=== PATIENT | male | born 1985 | race Caucasian/White ===

== ENCOUNTER 2021-06-17 16:47 | Inpatient (IN) ==
[2021-06-17] MEDS ORDERED: HYDROmorphone INJ 0.5 MG/0.5 ML SYR IV STA ×2 (17:26→19:16)
[2021-06-17] MEDS ORDERED: ONDANSETRON INJ 2 MG/ML 2 ML VIAL IV STA (17:26)
--- NOTE | 2021-06-17 17:27 | Emergency Department Note ---
History of Present Illness General Chief complaint: Back Injury/Pain Stated complaint: BACK PAIN Time Seen by Provider: 06/17/21 17:19 History of Present Illness Maximum Pain Intensity: 8 This is a 36-year-old male that presents to the emergency department via ambulance with complaints of low back pain". The patient states that he has been experiencing back pain over the past few months. He states that over the past few days it has significantly worsened. He presented to [facility] emergency department in [place] yesterday and notes that he was started on methylprednisolone as well as Flexeril. Pain has persisted. Today he presented to [facility] to have an L-spine MRI. He states that the pain has significantly worsened and therefore was brought here via EMS. He denies any fevers or chills. He does state that yesterday he had a sharp jolt of pain and a brief episode of urinary incontinence. No stool incontinence. Patient does note discomfort radiating down the left leg and weakness in the left leg that persists. Pain originates in the left low back region. No abdominal pain. No chest pain or shortness of breath. No fevers. Patient states that he has not had any spine surgeries previously. Patient notes a history of sarcoidosis. He also notes a history of blebectomy. No allergies. Home Medications Medication Instructions Recorded Confirmed Type buspirone 10 mg tablet 20 mg PO QAM 06/17/21 06/17/21 History citalopram 40 mg tablet 40 mg PO QAM 06/17/21 06/17/21 History cyclobenzaprine 10 mg tablet 10 mg PO BID PRN 06/17/21 06/17/21 History meloxicam 7.5 mg tablet 7.5 mg PO BID 06/17/21 06/17/21 History methylprednisolone 4 mg tablets in 4 - 24 mg PO UD 06/17/21 06/17/21 History a dose pack valacyclovir 1 gram tablet 1,000 mg PO DAILY 06/17/21 06/17/21 History Allergies Allergy/AdvReac Type Severity Reaction Status Date / Time No Known Allergies Allergy Unverified 06/17/21 19:16 Past Med/Surg History Medical History Sarcoidosis Surgical History History of lung surgery blebectomy Social History Smoking Status: Current every day smoker Cigarettes Per Day: 5; Second Hand Exposure: No; Do You Dip or Chew Tobacco: No; Tobacco Cessation Education Requested by Patient: No Hx Alcohol Use: Yes Alcohol type: beer Hx Substance Use: No Preferred Language: Romansh Communication Ability: Effective Guide Escort Required: No Beliefs That Will Affect Care: None Current Living Situation: Significant Other Other Information That Helps Us Care for You: No Feels Safe at Home: Yes Safety Concerns: Feels Safe At This Time Assistive Devices: None Review of Systems A total of 10 systems reviewed and were otherwise negative Physical Exam Vital Signs Vital Signs - 24 hr 06/17/21 16:50 06/17/21 17:26 06/17/21 18:00 Temperature 36.3 C L Temperature Source Temporal Artery Scan Pulse Rate 102 H 85 Pulse Rate [Apical] 75 Pulse Rhythm Regular Pulse Strength Normal Respiratory Rate 20 16 Respiratory Effort / Characteristics Non-Labored Spontaneous Non-Labored Spontaneous Respiratory Depth Normal Normal Respiratory Pattern Regular Blood Pressure 146/62 H Blood Pressure [Right Arm] 144/99 H Blood Pressure Mean 90 Blood Pressure Mean [Right Arm] 114 Blood Pressure Position Sitting Pulse Oximetry 97 98 99 Oxygen Delivery Method Room Air Room Air Room Air Sepsis Recent Fever Within 48 Hours No Sepsis New/Unexplained Change in Mental Status No Sepsis Action Taken by Nursing No Action Required VITAL SIGNS - Vital signs and nursing notes were reviewed. Stable and afebrile. GENERAL -36-year-old male appearing his stated age who is in no acute distress but appears to be in a lot of pain. Communicates well with provider and answers questions appropriately. SKIN - Without rashes. No meningeal or petechial rash. HEAD - NC/AT. NECK - No nuchal rigidity. LUNGS - Chest wall symmetric without accessory muscle use, intercostals retractions, or central cyanosis. Normal vesicular breath sounds CTA B/L. No wheezes, rales, or rhonchi appreciated. CARDIAC - RRR with S1/S2. No murmur, rubs, or gallops appreciated. ABDOMEN - Abdominal contour normal without pulsations or visible masses. EXTREMITIES - No clubbing or peripheral cyanosis. No pretibial edema present. Decreased strength of the left lower extremity noted compared to the right. Sensory intact to light touch throughout the bilateral lower extremities. Patient well-perfused in the lower extremities. NEUROLOGIC - Cranial nerves II through XII grossly intact. PSYCH - A&O, and cooperates fully with examiner. Pt is very pleasant and interacts well with examiner. Course Administered Medications Hydromorphone HCl (Hydromorphone Inj 1 Mg/Ml Syringe) 1 mg IV Q3H PRN PRN Reason: severe pain (scale 7-10) Stop: 07/01/21 20:17 Last Admin: 06/17/21 21:50 Dose: 1 mg Documented by: [id number] Lactated Ringer's (Lr) 1,000 mls @ 75 mls/hr IV .[id number] ON LICENSE OF [facility] Stop: 07/17/21 20:17 Last Admin: 06/17/21 20:28 Dose: 75 mls/hr Documented by: [id number] Discontinued Medications Albuterol (Albuterol Hfa 8 Gm Inhaler) 2 puffs INH QID ON LICENSE OF [facility] Stop: 07/17/21 20:59 Last Admin: 06/17/21 21:39 Dose: Not Given Documented by: [id number] Hydromorphone HCl (Hydromorphone Inj 0.5 Mg/0.5 Ml Syr) 0.5 mg IV NOW STA Stop: 06/17/21 17:27 Last Admin: 06/17/21 17:42 Dose: 0.5 mg Documented by: [id number] Hydromorphone HCl (Hydromorphone Inj 0.5 Mg/0.5 Ml Syr) 0.5 mg IV NOW STA Stop: 06/17/21 19:17 Last Admin: 06/17/21 19:23 Dose: 0.5 mg Documented by: [id number] Ondansetron HCl (Ondansetron Inj 2 Mg/Ml 2 Ml Vial) 4 mg IV NOW STA Stop: 06/17/21 17:27 Last Admin: 06/17/21 17:40 Dose: 4 mg Documented by: [id number] Medical Decision Making Laboratory Data Result diagrams: 06/17/21 17:40 06/17/21 17:40 Lab Results 06/17/21 06/17/21 06/17/21 Range/Units 17:40 17:40 17:40 WBC 12.04 H (4.8-10.8) K/uL RBC 4.47 L (4.7-6.1) M/uL Hgb 14.8 (14.0-18.0) g/dL Hct 42.5 (42-52) % MCV 95.1 (80-100) fL MCH 33.1 (25-34) pg MCHC 34.8 (32-36) g/dL RDW Std Deviation 43.6 (36.4-46.3) fL RDW Coeff of Musa 12.6 (11.5-14.5) % Plt Count 246 (130-400) K/uL MPV 9.8 (7.4-10.4) fL Immature Gran % (Auto) 0.2 % Neut % (Auto) 67.6 % Lymph % (Auto) 24.3 % [place] % (Auto) 7.5 % Eos % (Auto) 0.3 % Baso % (Auto) 0.1 % Neut # (Auto) 8.15 H (1.4-6.5) K/uL Lymph # (Auto) 2.92 (1.2-3.4) K/uL [place] # (Auto) 0.90 H (0.11-0.59) K/uL Eos # (Auto) 0.04 (0-0.5) K/uL Baso # (Auto) 0.01 (0-0.2) K/uL Immature Gran # (Auto) 0.02 (0.00-0.02) K/uL PT 11.3 (9.0-12.0) Seconds INR 1.1 (0.9-1.1) APTT 25.1 (21.0-31.0) Seconds PTT Ratio 1.0 Sodium 140 (136-145) mmol/L Potassium 3.6 (3.5-5.1) mmol/L Chloride 106 (98-107) mmol/L Carbon Dioxide 28 (21-32) mmol/L Anion Gap 6 (3-11) BUN 17 (6-23) mg/dl Creatinine 0.85 (0.6-1.4) mg/dl Est Cr Clr Drug Dosing Not Reportable Est GFR ( Amer) 130.8 ml/min Est GFR (Non-Af Amer) 112.9 ml/min BUN/Creatinine Ratio 20.0 (10-20) Glucose 90 (70-99(Fasting)) mg/dl Calcium 9.4 (8.5-10.1) mg/dl Total Bilirubin 0.5 (0.2-1.0) mg/dl AST 17 (13-39) U/L ALT 47 (7-52) U/L Alkaline Phosphatase 50 (34-104) U/L Total Protein 7.0 (6.0-8.3) gm/dl Albumin 4.4 (3.4-5.0) gm/dl Globulin 2.6 (2.5-4.0) gm/dl Albumin/Globulin Ratio 1.7 (0.9-2) SARS-CoV-2, RNA, NAAT (NEGATIVE) 06/17/21 Range/Units 17:52 WBC (4.8-10.8) K/uL RBC (4.7-6.1) M/uL Hgb (14.0-18.0) g/dL Hct (42-52) % MCV (80-100) fL MCH (25-34) pg MCHC (32-36) g/dL RDW Std Deviation (36.4-46.3) fL RDW Coeff of Mus[place] (11.5-14.5) % Plt Count (130-400) K/uL MPV (7.4-10.4) fL Immature Gran % (Auto) % Neut % (Auto) % Lymph % (Auto) % [place] % (Auto) % Eos % (Auto) % Baso % (Auto) % Neut # (Auto) (1.4-6.5) K/uL Lymph # (Auto) (1.2-3.4) K/uL [place] # (Auto) (0.11-0.59) K/uL Eos # (Auto) (0-0.5) K/uL Baso # (Auto) (0-0.2) K/uL Immature Gran # (Auto) (0.00-0.02) K/uL PT (9.0-12.0) Seconds INR (0.9-1.1) APTT (21.0-31.0) Seconds PTT Ratio Sodium (136-145) mmol/L Potassium (3.5-5.1) mmol/L Chloride (98-107) mmol/L Carbon Dioxide (21-32) mmol/L Anion Gap (3-11) BUN (6-23) mg/dl Creatinine (0.6-1.4) mg/dl Est Cr Clr Drug Dosing Est GFR ( Amer) ml/min Est GFR (Non-Af Amer) ml/min BUN/Creatinine Ratio (10-20) Glucose (70-99(Fasting)) mg/dl Calcium (8.5-10.1) mg/dl Total Bilirubin (0.2-1.0) mg/dl AST (13-39) U/L ALT (7-52) U/L Alkaline Phosphatase (34-104) U/L Total Protein (6.0-8.3) gm/dl Albumin (3.4-5.0) gm/dl Globulin (2.5-4.0) gm/dl Albumin/Globulin Ratio (0.9-2) SARS-CoV-2, RNA, NAAT NEGATIVE (NEGATIVE) MDM Narrative Patient was seen and evaluated as above in room D07. Review was performed of nursing notes and vital signs. After obtaining a thorough history and physical examination the above work up was performed. Patient presents to us today via EMS for evaluation of low back discomfort that has been worsening. He had an MRI today performed at [facility]. Patient states that ambulance was then summoned and brought him here for evaluation noting his significant discomfort. On my evaluation he appears to be in a fair amount of pain. He has low back pain that radiates down his left leg. This is consistent with lumbar radiculopathy. No fevers or chills. No abdominal pain. No findings to suggest cauda equina syndrome on my examination here at the present time. Options of care were discussed with the patient. IV access was established. Labs were drawn. I did review the MRI of the L-spine without contrast that was performed today. This reveals large left subarticular disc extrusion at L5-S1 resulting in severe left lateral recess stenosis and compression of the descending left S1 nerve root. This does fit with the patient's symptoms clinically. Patient has a follow-up scheduled for just over 10 days from now with Dr. Andersen. I did call Dr. Andersen. At this time we are in agreement that the patient would be best served by being admitted to the hospital for likely operative intervention. Patient happy with this plan of care. While here he was medicated with IV analgesics. He was also given IV Zofran. By history it appears that the patient has undergone physical therapy in the past and the pain has been ongoing now to a point where it is severe. His MRI also has significa nt findings. Please refer to further documentation regarding his stay. GCS: 15 In the evaluation and treatment of this patient the following differential diagnosis entertained: Fracture, dislocation, subluxation, cauda equina syndrome, AAA, diverticulitis, appendicitis, torsion, osteomyelitis, piriformis syndrome, strain, sprain, among others. Impression & Plan Lumbar radiculopathy, Intractable low back pain, Abnormal MRI, lumbar spine Discharge Plan Visit Data Chief Complaint: Back Injury/Pain Stated Complaint: BACK PAIN ED Midlevel Provider: Sohail Huang Discharge Problem: Lumbar radiculopathy, Intractable low back pain, Abnormal MRI, lumbar spine Patient Disposition: Admitted As Inpatient Condition: Good Discharge Instructions Interventions: ED Discharge Assessment Last Done: 06/17/21 20:04
[2021-06-17 17:52] LABS: Basophils # (auto) 0.01 K/uL (0-0.2); Basophils % (auto) 0.1 %; Eosinophils # (auto) 0.04 K/uL (0-0.5); Eosinophils % (auto) 0.3 %; Hematocrit (blood only) 42.5 % (42-52); Hemoglobin 14.8 g/dL (14.0-18.0); Immature Granulocytes # (auto) 0.02 K/uL (0.00-0.02); Immature Granulocytes % (auto) 0.2 %; Lymphocytes # (auto) 2.92 K/uL (1.2-3.4); Lymphocytes % (auto) 24.3 %; Mean Corpuscular Hemoglobin 33.1 pg (25-34); Mean Corpuscular Hgb Conc 34.8 g/dL (32-36); Mean Corpuscular Volume 95.1 fL (80-100); Mean Platelet Volume 9.8 fL (7.4-10.4); Monocytes % (auto) 7.5 %; Neutrophils # (auto) 8.15 K/uL (1.4-6.5); Neutrophils % (auto) 67.6 %; Platelet Count 246 K/uL (130-400); RDW Coefficient of Variation 12.6 % (11.5-14.5); RDW Standard Deviation 43.6 fL (36.4-46.3); Red Blood Count 4.47 M/uL (4.7-6.1); White Blood Count 12.04 K/uL (4.8-10.8)
[2021-06-17 18:02] LABS: INR 1.1 (0.9-1.1); Partial Thromboplastin Time 25.1 Seconds (21.0-31.0); Prothrombin Time 11.3 Seconds (9.0-12.0)
[2021-06-17 18:10] LABS: Alanine Aminotransferase 47 U/L (7-52); Albumin Globulin Ratio 1.7 (0.9-2); Albumin Level 4.4 gm/dl (3.4-5.0); Alkaline Phosphatase 50 U/L (34-104); Anion Gap 6 (3-11); Aspartate Aminotransferase 17 U/L (13-39); Bilirubin,Total 0.5 mg/dl (0.2-1.0); Blood Urea Nitrogen 17 mg/dl (6-23); Calcium 9.4 mg/dl (8.5-10.1); Carbon Dioxide 28 mmol/L (21-32); Chloride 106 mmol/L (98-107); Est GFR (African American) 130.8 ml/min; Est GFR (Non-African American) 112.9 ml/min; Globulin 2.6 gm/dl (2.5-4.0); Glucose 90 mg/dl (70-99(Fasting)); Potassium 3.6 mmol/L (3.5-5.1); Sodium 140 mmol/L (136-145)
[2021-06-17] MEDS ORDERED: ONDANSETRON INJ 2 MG/ML 2 ML VIAL IV PRN (20:18)
[2021-06-17] MEDS ORDERED: LORazepam 0.5 MG/1 ML VIAL IV PRN (20:18)
[2021-06-17] MEDS ORDERED: traMADol HCL 50 MG TABLET PO PRN (20:18)
[2021-06-17] MEDS ORDERED: HYDROmorphone INJ 0.5 MG/0.5 ML SYR IV PRN (20:18)
[2021-06-17] MEDS ORDERED: METOCLOPRAMIDE HCL INJ 5 MG/ML 2 ML VIAL IV PRN (20:18)
[2021-06-17] MEDS ORDERED: PROMETHAZINE HCL 12.5 MG in SODIUM CHLORIDE 0.9% 50 ML IV PRN (20:18)
[2021-06-17] MEDS ORDERED: ONDANSETRON 4 MG OD TAB PO PRN (20:18)
[2021-06-17] MEDS ORDERED: ACETAMINOPHEN 1,000 MG/100 ML VIAL IV PRN (20:18)
[2021-06-17] MEDS ORDERED: LORazepam 0.5 MG TAB PO PRN (20:18)
[2021-06-17] MEDS ORDERED: ACETAMINOPHEN 500 MG TAB PO PRN (20:18)
[2021-06-17] MEDS ORDERED: NALOXONE HCL 0.4 MG/1 ML VIAL/CARP IV PRN (20:18)
[2021-06-17] MEDS: LACTATED RINGER'S 1,000 ML IV SCH (20:28)
[2021-06-17] MEDS ORDERED: ALBUTEROL HFA 8 GM INHALER INH SCH (21:00)
[2021-06-17] MEDS: HYDROmorphone INJ 1 MG/ML SYRINGE IV PRN (21:50)
--- NOTE | 2021-06-17 22:14 | Hospitalist Consultation ---
Date of Consultation June 17, 2021 Assessment & Plan (1) Lumbar radiculopathy: Final Assessment and Recommendations as follows : Lumbar radiculopathy, worsening symptoms Failed conservative management Situational hypertension COPD, sarcoidosis, stable lung status for years now as per patient ADHD, anxiety/mood disorder, stable on home regimen ongoing tobacco abuse Management of lumbar radiculopathy as per Orthopedics. Recommend baseline CXR if surgery contemplated given history lung disease Analgesia Nicotine patch as needed DVT prophylaxis. SCDs as per admission orders Re: Possible spine surgery Thank you very much for this consultation. Dr. Hay will follow patient's progress. Will relay to AM provider. Text document was generated using [employer] voice recognition software. It may contain grammatical or spelling errors. Kindly contact undersigned for clarification of any documentation item in question. History of Present Illness Reason for Consultation: Medical management Requesting Physician: Dr. Andersen Attending Physician: Avinash Andersen DO History of Present Illness PCP : Dr. Saucedo History obtained from patient and records. Medical history significant for COPD, sarcoidosis, ADHD, anxiety/mood disorder, ongoing tobacco abuse. Last confinement 2011 for recurrent pneumothorax left status post VATS surgery. 4 months ago, patient noted low back pain more on the left with a radiation to the left lower extremity. No leg weakness, numbness or incontinence symptoms. May have been brought about by dropping a stove backwards on himself, having to carry his 90 pound dog up flights of stairs, and prolonged sitting from work. 2 months ago, patient noted worsening discomfort with leg weakness and numbness. No fever, no chills. Patient seen at PCPs office last month. Symptoms attributed to lumbar radiculopathy. Medrol Dosepak, meloxicam and outpatient physical therapy recommended. Outpatient lumbosacral spine x-ray showed L4-S1 degenerative disc changes. Patient had worsening discomfort after physical therapy about 2 days ago. Patient consulted [facility] ER and subsequently sent home. Outpatient orthopedic spine referral scheduled for end of the month. Outpatient MRI scheduled today. Possible urinary incontinence on the way to outpatient MRI facility at [facility] as per patient. There is a large left subarticular disc extrusion at L5-S1 resulting in severe left lateral recess stenosis and compression of the descending left S1 nerve root. Patient consulted ER for worsening symptoms. 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, occasional EtOH intake, RN Allergies Allergy/AdvReac Type Severity Reaction Status Date / Time No Known Allergies Allergy Unverified 06/17/21 19:16 Home Medications Medication Instructions Recorded Confirmed Type buspirone 10 mg tablet 20 mg PO QAM 06/17/21 06/17/21 History citalopram 40 mg tablet 40 mg PO QAM 06/17/21 06/17/21 History cyclobenzaprine 10 mg tablet 10 mg PO BID PRN 06/17/21 06/17/21 History meloxicam 7.5 mg tablet 7.5 mg PO BID 06/17/21 06/17/21 History methylprednisolone 4 mg tablets in 4 - 24 mg PO UD 06/17/21 06/17/21 History a dose pack valacyclovir 1 gram tablet 1,000 mg PO DAILY 06/17/21 06/17/21 History Patient History Medical History Sarcoidosis Surgical History History of lung surgery blebectomy Social History Smoking Status: Current every day smoker Cigarettes Per Day: 5; Second Hand Exposure: No; Do You Dip or Chew Tobacco: No; Tobacco Cessation Education Requested by Patient: No Hx Alcohol Use: Yes Alcohol type: beer Hx Substance Use: No Preferred Language: Palestinian Communication Ability: Effective Quality Assurance Analyst Required: No Beliefs That Will Affect Care: None Current Living Situation: Significant Other Other Information That Helps Us Care for You: No Feels Safe at Home: Yes Safety Concerns: Feels Safe At This Time Assistive Devices: None Review of Systems Review of Systems: As per HPI, all 10 systems reviewed, all other ROS negative Physical Exam Physical Exam: GENERAL: Slightly uncomfortable, no respiratory distress SKIN: Normal color, warm HEENT: [place] palpebral conjunctivae, no ptosis, moist buccal mucosa NECK : Supple, no tenderness CHEST : Decreased breath sounds, no tenderness HEART : RRR, no obvious murmurs ABDOMEN: Some distention, nontender BACK : Low back tenderness, positive SLR left EXTREMITIES : No LE swelling/tenderness, no other conspicuous deformities noted NEUROLOGIC : Coherent, no facial asymmetry, gait and stance not assessed Results & Data Results & Data ([facility]) Vital Signs (Past 12 Hours) Vital Signs Temp Pulse Pulse Pulse Resp BP BP 06/17/21 20:30 36.6 C 71 16 144/91 H 06/17/21 20:13 36.6 C 83 20 161/101 H 06/17/21 19:59 36.6 C 75 16 140/93 06/17/21 19:24 88 16 139/95 06/17/21 18:00 75 16 144/99 H 06/17/21 17:26 85 06/17/21 16:50 36.3 C L 102 H 20 146/62 H Pulse Ox 06/17/21 20:30 98 06/17/21 20:13 98 06/17/21 19:59 99 06/17/21 19:24 99 06/17/21 18:00 99 06/17/21 17:26 98 06/17/21 16:50 97 Laboratory Results Laboratory Results WBC 12.04 K/uL (4.8-10.8) H 06/17/21 17:40 RBC 4.47 M/uL (4.7-6.1) L 06/17/21 17:40 Hgb 14.8 g/dL (14.0-18.0) 06/17/21 17:40 Hct 42.5 % (42-52) 06/17/21 17:40 MCV 95.1 fL (80-100) 06/17/21 17:40 MCH 33.1 pg (25-34) 06/17/21 17:40 MCHC 34.8 g/dL (32-36) 06/17/21 17:40 RDW Std Deviation 43.6 fL (36.4-46.3) 06/17/21 17:40 RDW Coeff of Musa 12.6 % (11.5-14.5) 06/17/21 17:40 Plt Count 246 K/uL (130-400) 06/17/21 17:40 MPV 9.8 fL (7.4-10.4) 06/17/21 17:40 Immature Gran % (Auto) 0.2 % 06/17/21 17:40 Neut % (Auto) 67.6 % 06/17/21 17:40 Lymph % (Auto) 24.3 % 06/17/21 17:40 [place] % (Auto) 7.5 % 06/17/21 17:40 Eos % (Auto) 0.3 % 06/17/21 17:40 Baso % (Auto) 0.1 % 06/17/21 17:40 Neut # (Auto) 8.15 K/uL (1.4-6.5) H 06/17/21 17:40 Lymph # (Auto) 2.92 K/uL (1.2-3.4) 06/17/21 17:40 [place] # (Auto) 0.90 K/uL (0.11-0.59) H 06/17/21 17:40 Eos # (Auto) 0.04 K/uL (0-0.5) 06/17/21 17:40 Baso # (Auto) 0.01 K/uL (0-0.2) 06/17/21 17:40 Immature Gran # (Auto) 0.02 K/uL (0.00-0.02) 06/17/21 17:40 PT 11.3 Seconds (9.0-12.0) 06/17/21 17:40 INR 1.1 (0.9-1.1) 06/17/21 17:40 APTT 25.1 Seconds (21.0-31.0) 06/17/21 17:40 PTT Ratio 1.0 06/17/21 17:40 Sodium 140 mmol/L (136-145) 06/17/21 17:40 Potassium 3.6 mmol/L (3.5-5.1) 06/17/21 17:40 Chloride 106 mmol/L (98-107) 06/17/21 17:40 Carbon Dioxide 28 mmol/L (21-32) 06/17/21 17:40 Anion Gap 6 (3-11) 06/17/21 17:40 BUN 17 mg/dl (6-23) 06/17/21 17:40 Creatinine 0.85 mg/dl (0.6-1.4) 06/17/21 17:40 Est Cr Clr Drug Dosing Not Reportable 06/17/21 17:40 Est GFR ( Amer) 130.8 ml/min 06/17/21 17:40 Est GFR (Non-Af Amer) 112.9 ml/min 06/17/21 17:40 BUN/Creatinine Ratio 20.0 (10-20) 06/17/21 17:40 Glucose 90 mg/dl (70-99(Fasting)) 06/17/21 17:40 Calcium 9.4 mg/dl (8.5-10.1) 06/17/21 17:40 Total Bilirubin 0.5 mg/dl (0.2-1.0) 06/17/21 17:40 AST 17 U/L (13-39) 06/17/21 17:40 ALT 47 U/L (7-52) 06/17/21 17:40 Alkaline Phosphatase 50 U/L (34-104) 06/17/21 17:40 Total Protein 7.0 gm/dl (6.0-8.3) 06/17/21 17:40 Albumin 4.4 gm/dl (3.4-5.0) 06/17/21 17:40 Globulin 2.6 gm/dl (2.5-4.0) 06/17/21 17:40 Albumin/Globulin Ratio 1.7 (0.9-2) 06/17/21 17:40 SARS-CoV-2, RNA, NAAT NEGATIVE (NEGATIVE) 06/17/21 17:52
[2021-06-17] MEDS ORDERED: CYCLOBENZAPRINE HCL 10 MG TAB PO PRN (23:36)
[2021-06-17] MEDS ORDERED: ALBUTEROL HFA 8 GM INHALER INH PRN (23:39)
[2021-06-18] MEDS: HYDROmorphone INJ 1 MG/ML SYRINGE IV PRN ×5 (01:32→16:06)
[2021-06-18] MEDS: oxyCODONE HCL IR 5 MG TAB (IMMEDIATE RELEASE) PO PRN ×3 (02:38→17:21)
[2021-06-18] MEDS ORDERED: ceFAZolin 2000MG 2,000 MG/15 ML SYR IV SCH (06:00)
[2021-06-18 06:27] LABS: Appearance Urine Clear (Clear); Bilirubin Urine Negative (Negative); Blood Urine Negative (Negative); Color Urine Dark Yellow; Glucose Urine UA Negative (Negative); Ketones Urine Trace (Negative); Leukocyte Esterase Urine Negative (Negative); Nitrite Urine Negative (Negative); Protein Urine Negative (Negative); Specific Gravity Urine 1.032 (1.000-1.030); Urobilinogen Urine Negative (Negative); pH Urine 5.5 (4.5-7.5)
--- NOTE | 2021-06-18 07:14 | Anesthesiology Consultation ---
Date of Service June 18, 2021 Assessment & Plan (1) Encounter for pre-operative examination: covid neg 06/17/21 Chart Review Chart Review: Acceptable Risk for Surgery and Patient NOT seen in Pre Admission Testing Consults Requested none History Surgery Operation Date: 06/18/21 10:30 Proposed Procedures p Lumbar Decompression Possible Fusion L4-5 - Avinash Andersen DO Height/Weight Height: 6 ft 4 in Weight: 104.9 kg Allergies Allergy/AdvReac Type Severity Reaction Status Date / Time No Known Allergies Allergy Unverified 06/17/21 19:16 Medications Home Medications Medication Instructions Recorded Confirmed Last Taken buspirone 10 mg tablet 20 mg PO QAM 06/17/21 06/17/21 06/17/21 citalopram 40 mg tablet 40 mg PO QAM 06/17/21 06/17/21 06/17/21 cyclobenzaprine 10 mg tablet 10 mg PO BID PRN 06/17/21 06/17/21 06/17/21 07:00 meloxicam 7.5 mg tablet 7.5 mg PO BID 06/17/21 06/17/21 06/17/21 07:00 15 mg methylprednisolone 4 mg tablets in 4 - 24 mg PO UD 06/17/21 06/17/21 06/16/21 a dose pack 24mg - 6 pills valacyclovir 1 gram tablet 1,000 mg PO DAILY 06/17/21 06/17/21 06/17/21 Active Medications Generic Name Dose Route Start Last Admin Trade Name Freq PRN Reason Stop Dose Admin Hydromorphone HCl 1 mg 06/17/21 20:18 06/18/21 04:46 Hydromorphone Inj 1 Mg/Ml Syringe IV 07/01/21 20:17 1 mg Q3H PRN Administration severe pain (scale 7-10) Lactated Ringer's 1,000 mls @ 75 mls/hr 06/17/21 20:18 06/17/21 20:28 Lr IV 07/17/21 20:17 75 mls/hr .[id number] Administration Oxycodone HCl 5 - 10 mg 06/17/21 20:18 06/18/21 02:38 Oxycodone Hcl Ir 5 Mg Tab (Immediate Release) PO 07/01/21 20:17 10 mg Q4H PRN Administration mod to severe pain Past Medical History Medical History Sarcoidosis Past Surgical History Surgical History History of lung surgery blebectomy Social History Smoking Status: Current every day smoker tobacco type: cigarettes Smoking cigarettes per day: 5 Do You Dip or Chew Tobacco: No Hx Alcohol Use: Yes Alcohol type: beer alcohol intake frequency: a few times a week Hx Substance Use: No substance use type: does not use Physical Exam Vital Signs Last Vital Signs Temp 36.6 C 06/17/21 20:30 Pulse 71 06/17/21 20:30 Resp 16 06/17/21 20:30 BP 144/91 H 06/17/21 20:30 Pulse Ox 98 06/17/21 20:30 Testing Laboratory Results 06/17/21 17:40 06/17/21 17:40 PT 11.3 Seconds (9.0-12.0) 06/17/21 17:40 INR 1.1 (0.9-1.1) 06/17/21 17:40 APTT 25.1 Seconds (21.0-31.0) 06/17/21 17:40 Urine Color Dark Yellow 06/18/21 05:56 Urine Appearance Clear (Clear) 06/18/21 05:56 Urine pH 5.5 (4.5-7.5) 06/18/21 05:56 Ur Specific [place] 1.032 (1.000-1.030) H 06/18/21 05:56 Urine Protein Negative (Negative) 06/18/21 05:56 Urine Glucose (UA) Negative (Negative) 06/18/21 05:56 Urine Ketones Trace (Negative) H 06/18/21 05:56 Urine Nitrite Negative (Negative) 06/18/21 05:56 Ur Leukocyte Esterase Negative (Negative) 06/18/21 05:56
[2021-06-18] MEDS: busPIRone 5 MG TAB PO SCH (07:49)
[2021-06-18] MEDS: FLUTICASONE PROPIONATE NA SPR 16 GM BTL NAE SCH (07:49)
[2021-06-18] MEDS: FLUTICASONE FUROATE 200MCG 14 PUFFS/INHALER INH SCH (07:49)
[2021-06-18] MEDS: CITALOPRAM 40 MG TAB PO SCH (07:49)
[2021-06-18] MEDS: valACYclovir HCL 500 MG TABLET PO SCH (07:49)
[2021-06-18] MEDS ORDERED: HYDROmorphone INJ 1 MG/ML SYRINGE IV STA (08:55)
[2021-06-18] MEDS: LACTATED RINGER'S 1,000 ML IV SCH ×2 (09:08→22:08)
--- NOTE | 2021-06-18 09:21 | History & Physical Report ---
Date of Service June 18, 2021 Assessment & Plan (1) Lumbar disc herniation with radiculopathy: Plan: MRI of the lumbar spine performed 06/17/2021 at [facility] demonstrates evidence of a massive disc herniation L5-S1 on the left with evidence of a free fragment caudal migration. There is severe displacement the traversing S1 nerve root. Plan at this time patient is in severe distress with progressive motor deficit and recommending emergent lumbar laminectomy L5-S1 with excision of herniated fragment. Risk benefits pros cons alternatives were outlined in detail. Patient is n.p.o. and plan for surgery later today. Admission and Anticipated Discharge Date Admission Date: June 17, 2021 History of Present Illness Chief Complaint: Severe left leg pain with weakness Primary Care Provider: Petey Saucedo MD This is a 36-year-old male that has history of left sciatica for several weeks with a marked decline in status over the past few days. He presents emergency room with severe pain and inability to ambulate. He denies any loss of bowel bladder control. Denies any perineal numbness. Does have numbness and tingling extending down the entire left lower extremity to the lesser toes. The right lower extremities asymptomatic. Allergies Allergy/AdvReac Type Severity Reaction Status Date / Time No Known Allergies Allergy Unverified 06/17/21 19:16 Home Medications Medication Instructions Recorded Confirmed Type buspirone 10 mg tablet 20 mg PO QAM 06/17/21 06/17/21 History citalopram 40 mg tablet 40 mg PO QAM 06/17/21 06/17/21 History cyclobenzaprine 10 mg tablet 10 mg PO BID PRN 06/17/21 06/17/21 History meloxicam 7.5 mg tablet 7.5 mg PO BID 06/17/21 06/17/21 History methylprednisolone 4 mg tablets in 4 - 24 mg PO UD 06/17/21 06/17/21 History a dose pack valacyclovir 1 gram tablet 1,000 mg PO DAILY 06/17/21 06/17/21 History Past Med/Surg History Medical History Sarcoidosis Surgical History History of lung surgery blebectomy Social History Smoking Status: Current every day smoker Cigarettes Per Day: 5; Second Hand Exposure: No; Do You Dip or Chew Tobacco: No; Tobacco Cessation Education Requested by Patient: No Hx Alcohol Use: Yes Alcohol type: beer Hx Substance Use: No Preferred Language: [place] Communication Ability: Effective 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 He is in severe discomfort when transitioning to a supine position. It causes severe pain left buttock posterior thigh and to the left foot. He has marked tension signs with straight leg raising on the left as well as contralateral signs on the right. He has deficits with plantar flexion on the left compared to the r ight at 4-/5. There is clear changes in sensory with cold and light touch to the left. Degenerative flexes absent. Results & Data ([facility]) Vital Signs (Past 12 Hours) Vital Signs Temp Pulse Resp BP Pulse Ox 06/18/21 08:14 36.4 C L 65 16 130/88 98 Code Status & VTE Plan VTE Prophylaxis Plan VTE Prophylaxis will be ordered: Yes
--- NOTE | 2021-06-18 11:49 | Hospitalist Progress Note ---
Date of Service June 18, 2021 Assessment & Plan (1) Lumbar disc herniation with radiculopathy: (2) Intractable low back pain: Plan: Scheduled for lumbar decompression and fusion L5-S1 today with Dr. Andersen Per ortho for pain control, wound care, anticoagulation and activities Monitor H&H (pre-op hgb 14.8), continue incentive spirometry, PT/OT when appropriate (3) COPD (chronic obstructive pulmonary disease): Plan: Stable. Not using home inhalers (4) Anxiety: Plan: Continue buspirone, citalopram (5) Tobacco use disorder: Plan: Smoking cessation recommended DVT ppx: per primary service Code status: FULL PCP: Sheryl Dispo: Admitted to med/surg Patient seen in collaboration with Dr. Hay. Please see addendum. Admission and Anticipated Discharge Date Admission Date: June 17, 2021 Supervising Physician Co-Signing Physician Notes Patient is seen and examined at bedside. States having significant back pain radiating to the left lower extremity associated with numbness and tingling sensation of the left lower extremity. Denies any chest pain, shortness of breath, dizziness, nausea, abdominal pain. Patient is planned for back surgery today by Dr. Andersen. On exam patient is well-built and nourished, no apparent distress, normocephalic atraumatic, EOMI, normal breath sounds, clear to auscultation, S1-S2, no murmur, no pedal edema, abdomen soft, nontender, normal bowel sounds, alert, awake, oriented, grossly no focal deficits. Pain control, activity as per primary team. Consider PT OT when appropriate. Monitor for postop anemia. Bowel regimen to prevent constipation. No signs of COPD exacerbation. Blood pressure elevated likely situational secondary to pain. Monitor blood pressure closely. I personally reviewed the record. Patient is interviewed and examined at bedside. Patient's care is coordinated with Jazmyne Clark PA-C. Please refer to the documentation above for details of patient's presentation and for discussion of other issues. Subjective Seen and examined in 357-1. Due for OR later this morning for spinal surgery with Dr. Andersen. Lower back pain minimally improved with Dilaudid this AM. Also experiencing burning pain in BLE. Discussed other med options of tylenol, oxycodone, flexeril and ice to try pre-operatively. No F/C, CP, SOB, N/V/D, urinating without issue. Review of Systems Review of Systems: At least ten systems reviewed and negative except as noted in the HPI. Physical Exam Physical Exam: Gen: WD/WN, NAD, sitting on side of bed, A&Ox3 HEENT: Normocephalic, atraumatic, conjunctivae moist, sclerae anicteric, mucous membranes moist Lung: Clear to Auscultation bilaterally, no wheezes/rales/rhonchi Heart: Regular rate, regular rhythm, no murmurs, rubs, or gallops Abdomen: Soft, NT, ND +BS x 4 Extremities: no edema Skin: Warm, no rash Results & Data Results & Data ([facility]) Vital Signs (Past 12 Hours) Vital Signs Temp Pulse Resp BP Pulse Ox 06/18/21 08:14 36.4 C L 65 16 130/88 98 Laboratory Results Short CBC 06/17/21 Range/Units 17:40 WBC 12.04 H (4.8-10.8) K/uL Hgb 14.8 (14.0-18.0) g/dL Hct 42.5 (42-52) % Plt Count 246 (130-400) K/uL BMP 06/17/21 17:40 Sodium 140 Potassium 3.6 Chloride 106 Carbon Dioxide 28 BUN 17 Creatinine 0.85 Glucose 90 Calcium 9.4 Liver Function 06/17/21 Range/Units 17:40 Total Bilirubin 0.5 (0.2-1.0) mg/dl AST 17 (13-39) U/L ALT 47 (7-52) U/L Alkaline Phosphatase 50 (34-104) U/L Albumin 4.4 (3.4-5.0) gm/dl Urine 06/18/21 Range/Units 05:56 Urine Color Dark Yellow Urine Appearance Clear (Clear) Urine pH 5.5 (4.5-7.5) Ur Specific [place] 1.032 H (1.000-1.030) Urine Protein Negative (Negative) Urine Glucose (UA) Negative (Negative)
[2021-06-18] MEDS ORDERED: DEXAMETHASONE SOD INJ 4 MG/ML VIAL ONE (17:14)
[2021-06-18] MEDS ORDERED: LIDOCAINE 2% 2 ML VIAL/AMP(20MG/ML) INFIL ONE (17:14)
[2021-06-18] MEDS ORDERED: ROCURONIUM BROMIDE 10 MG/ML 5 ML VIAL IV ONE (17:14)
[2021-06-18] MEDS ORDERED: ONDANSETRON INJ 2 MG/ML 2 ML VIAL ONE ×2 (17:14→19:41)
[2021-06-18] MEDS ORDERED: fentaNYL citrate 100 MCG/2 ML VIAL ONE ×2 (17:14)
[2021-06-18] MEDS ORDERED: PROPOFOL IV EMULSION 10 MG/ML 20 ML VIAL IV ONE (17:14)
[2021-06-18] MEDS ORDERED: MIDAZOLAM HCL 1 MG/ML 2ML VIAL ONE (17:14)
[2021-06-18] MEDS ORDERED: EPINEPHrine INJ 1 MG/ML AMP ONE (18:11)
[2021-06-18] MEDS ORDERED: BUPIVACAINE 0.5 % 5 MG/1 ML MPF 30ML VIAL ONE (18:12)
[2021-06-18] MEDS ORDERED: ceFAZolin 330 MG/ML 1 GM VIAL ONE (18:12)
[2021-06-18] MEDS ORDERED: fentaNYL citrate 100 MCG/2 ML VIAL IV PRN (18:31)
[2021-06-18] MEDS ORDERED: ATROPINE SULFATE 0.1 MG/ML 10ML SYR IV PRN (18:31)
[2021-06-18] MEDS ORDERED: PROMETHAZINE HCL 12.5 MG in SODIUM CHLORIDE 0.9% 50 ML IV PRN ×2 (18:31→21:29)
[2021-06-18] MEDS ORDERED: ePHEDrine sulfate 50 MG/ML AMP IV PRN (18:31)
[2021-06-18] MEDS ORDERED: ONDANSETRON INJ 2 MG/ML 2 ML VIAL IV PRN ×2 (18:31→21:29)
[2021-06-18] MEDS ORDERED: HYDROmorphone INJ 2 MG/ML SYR/VIAL IV PRN (18:31)
[2021-06-18] MEDS ORDERED: ePHEDrine sulfate 50 MG/ML AMP ONE (19:16)
[2021-06-18] MEDS ORDERED: SODIUM CHLORIDE 0.9% INJ 10 ML VIAL ONE (19:16)
[2021-06-18] MEDS ORDERED: GLYCOPYRROLATE 0.2 MG/ML VIAL ONE (19:47)
[2021-06-18] MEDS ORDERED: NEOSTIGMINE METHYLSULFATE 1 MG/ML 10ML VIAL ONE (19:47)
--- NOTE | 2021-06-18 19:51 | Operative Report ---
Post Operative Report Pre & Post Diagnosis Operation Date: 06/18/21 10:30 Pre-Op Diagnosis: L5-S1 Lumbar disc herniation with radiculopathy Post-Op Diagnosis: L5-S1 Lumbar disc herniation with radiculopathy I identified the patient and participated in the time-out.: Yes Procedure Operation Date: 06/18/21 10:30 Actual Procedures Lumbar laminotomy L5-S1 the left with excision of herniated free fragment Surgeon Avinash Andersen, DO Tour Coordinator None Estimated Blood Loss 10 Findings Consistent with Post-Op Diagnosis Specimens None Indications This is a 36-year-old male presents with severe left leg radiculopathy and deficit with plantarflexion and inability ambulate. MRI demonstrates massive herniated free fragment at L5-S1 with component of caudal migration and severe compression of the traversing S1 nerve root and is here for emergent laminotomy discectomy. Description of Procedure Patient was met with identified informed consent obtained. Patient was then taken to the operative suite underwent ablation placed in a prone position adjustable totals frame. All when he prominences well-padded eyes inspected to ensure no external pressure placed upon the. This point lumbar spine was prepped and draped in a sterile fashion. The assistance of fluoroscopy defy the L5-S1 disc space and a small midline incision was created overlying this region. Sharp dissection with assistance of Bovie electrocautery was performed down to expose the interlaminar space at L5-S1 left. Several 10 retractors placed. I then performed a small laminotomy excising the lateral portion of ligamentum flavum to expose a severely compressed traversing S1 nerve root. I was able to mobilize the nerve root medially and several massive fragments of free disc material identified and removed. The area was explored several times to ensure all fragments addressed then copiously irrigated and closed with subcutaneous Vicryl 4 Monocryl for final skin closure. Steri-Strip sterile dressings placed. Patient will continue PACU stable condition. I attest to the content of the Intraoperative Record and any orders documented therein. Any exceptions are noted below.
--- NOTE | 2021-06-18 21:00 | Anesthesiology Progress Note ---
Date of Service June 18, 2021 Anesthesia Post Procedure Vital Signs Vital Signs: Temp Pulse Pulse Resp BP Pulse Ox 06/18/21 20:48 80 14 129/91 96 06/18/21 20:35 65 14 129/71 100 06/18/21 20:25 77 14 139/80 100 06/18/21 20:20 36.3 C L 79 12 149/114 H 100 06/18/21 17:59 36.5 C 72 18 151/107 H 96 06/18/21 16:49 73 146/92 H 06/18/21 15:43 36.5 C 83 16 149/103 H 98 06/18/21 08:14 36.4 C L 65 16 130/88 98 Pain Intensity Back: Pain Intensity: 3 Left Leg: Pain Intensity: 0 Transfer of Care Handoff Completed per policy Notes Mental Status: alert / awake / arousable and participated in evaluation Patient Amnestic to Procedure: Yes Nausea / Vomiting: adequately controlled Pain: adequately controlled Airway Patency, RR, SpO2: stable & adequate BP & HR: stable & adequate Hydration State: stable & adequate Anesthetic Complications: no major complications apparent and Pt Satisfied with anesthetic care
[2021-06-18] MEDS ORDERED: ALUMINUM/MAGNESIUM SUSP 30 ML UDC PO PRN (21:29)
[2021-06-18] MEDS ORDERED: SOD PHOSPHATE/SOD BIPHOSPHATE ENEMA 132 ML BTL PR PRN (21:29)
[2021-06-18] MEDS ORDERED: NALOXONE HCL 0.4 MG/1 ML VIAL/CARP IV PRN (21:29)
[2021-06-18] MEDS ORDERED: DO NOT ADMINISTER FLU VACCINE PRN (21:29)
[2021-06-18] MEDS ORDERED: diphenhydrAMINE Capsule 25 MG CAP PO PRN (21:29)
[2021-06-18] MEDS ORDERED: traMADol HCL 50 MG TABLET PO PRN (21:29)
[2021-06-18] MEDS ORDERED: LORazepam 0.5 MG/1 ML VIAL IV PRN (21:29)
[2021-06-18] MEDS ORDERED: DOCUSATE SODIUM/SENNA 50/8.6MG TAB PO SCH (21:29)
[2021-06-18] MEDS ORDERED: FAMOTIDINE 20 MG TAB PO PRN (21:29)
[2021-06-18] MEDS ORDERED: hydrOXYzine HCl 25 MG TAB PO PRN (21:29)
[2021-06-18] MEDS ORDERED: ACETAMINOPHEN 500 MG TAB PO PRN (21:29)
[2021-06-18] MEDS ORDERED: ONDANSETRON 4 MG OD TAB PO PRN (21:29)
[2021-06-18] MEDS ORDERED: METOCLOPRAMIDE HCL INJ 5 MG/ML 2 ML VIAL IV PRN (21:29)
[2021-06-18] MEDS ORDERED: HYDROmorphone INJ 0.5 MG/0.5 ML SYR IV PRN (21:29)
[2021-06-18] MEDS ORDERED: ACETAMINOPHEN 1,000 MG/100 ML VIAL IV PRN (21:29)
[2021-06-18] MEDS ORDERED: DO NOT ADMINISTER PNEUMOCOCCAL VACCINE PRN (21:29)
[2021-06-18] MEDS ORDERED: LORazepam 0.5 MG TAB PO PRN (21:29)
[2021-06-18] MEDS ORDERED: MAGNESIUM HYDROXIDE SUSP 30 ML UDC PO PRN (21:29)
[2021-06-18] MEDS ORDERED: HYDROmorphone INJ 1 MG/ML SYRINGE IV PRN (21:29)
[2021-06-18] MEDS ORDERED: bisacodyL 10 MG SUPP PR PRN (21:29)
--- NOTE | 2021-06-18 22:14 | Fluoroscopy Report ---
FL spine 1V any level CLINICAL HISTORY: Laminectomy COMPARISON STUDY: None FLUOROSCOPY TIME: 4 seconds. FLUOROSCOPIC IMAGES: 1 FINDINGS: Lateral fluoroscopic image was obtained with the probe present at the L5-S1 level. IMPRESSION: Localization of the L5-S1 level. ACT 112: Negative or not required by law. Electronically signed by: Marcellus Cruz M.D. 06/18/2021 10:13 PM
[2021-06-18] MEDS: KETOROLAC 30 MG/ML VIAL IV SCH (22:25)
[2021-06-19] MEDS: ceFAZolin 2000MG 2,000 MG/15 ML SYR IV SCH ×2 (01:55→10:43)
[2021-06-19] MEDS: KETOROLAC 30 MG/ML VIAL IV SCH ×2 (03:56→10:43)
[2021-06-19] MEDS: LACTATED RINGER'S 1,000 ML IV SCH (05:00)
[2021-06-19 06:11] LABS: Hematocrit (blood only) 39.3 % (42-52); Hemoglobin 14.2 g/dL (14.0-18.0); Mean Corpuscular Hemoglobin 33.9 pg (25-34); Mean Corpuscular Hgb Conc 36.1 g/dL (32-36); Mean Corpuscular Volume 93.8 fL (80-100); Mean Platelet Volume 9.7 fL (7.4-10.4); Platelet Count 237 K/uL (130-400); RDW Coefficient of Variation 12.3 % (11.5-14.5); RDW Standard Deviation 41.4 fL (36.4-46.3); Red Blood Count 4.19 M/uL (4.7-6.1); White Blood Count 9.49 K/uL (4.8-10.8)
[2021-06-19] MEDS: POLYETHYLENE (MIRALAX) 17 GM PACK PO SCH ×2 (06:18→11:20)
[2021-06-19 06:19] LABS: BUN Creatinine Ratio 15.7 (10-20); Calcium 9.2 mg/dl (8.5-10.1); Creatinine Clr Calc Pharmacy 154.1 ml/min; Est GFR (African American) 128.4 ml/min; Est GFR (Non-African American) 110.8 ml/min; Potassium 3.9 mmol/L (3.5-5.1)
[2021-06-19] MEDS: oxyCODONE HCL IR 5 MG TAB (IMMEDIATE RELEASE) PO PRN ×2 (08:01→12:51)
[2021-06-19] MEDS: valACYclovir HCL 500 MG TABLET PO SCH (08:01)
[2021-06-19] MEDS: CITALOPRAM 40 MG TAB PO SCH (08:01)
[2021-06-19] MEDS: busPIRone 5 MG TAB PO SCH (08:01)
[2021-06-19] MEDS: FLUTICASONE PROPIONATE NA SPR 16 GM BTL NAE SCH (08:02)
[2021-06-19] MEDS: FLUTICASONE FUROATE 200MCG 14 PUFFS/INHALER INH SCH (08:02)
[2021-06-19] MEDS ORDERED: dexAMETHasone 6 MG in SYRINGE 0 ML IV SCH (09:00)
--- NOTE | 2021-06-19 09:15 | Hospitalist Progress Note ---
Date of Service June 19, 2021 Assessment & Plan (1) Lumbar disc herniation with radiculopathy: (2) Intractable low back pain: Plan: POD#1 s/p Lumbar laminotomy L5-S1 the left with excision of herniated free fragment by Dr. Andersen Per ortho for pain control, wound care, anticoagulation and activities Monitor H&H (pre-op hgb 14.8), continue incentive spirometry, PT/OT when appropriate (3) COPD (chronic obstructive pulmonary disease): Plan: Stable. Not using home inhalers (4) Anxiety: Plan: Continue buspirone, citalopram (5) Tobacco use disorder: Plan: Smoking cessation recommended DVT ppx: per primary service Code status: FULL PCP: Sheryl Dispo: Admitted to med/surg Patient seen in collaboration with Dr. Hay. Please see addendum. Admission and Anticipated Discharge Date Admission Date: June 17, 2021 Supervising Physician Co-Signing Physician Notes Patient is seen and examined at bedside. States feeling well today. Back pain is much improved denies any leg numbness, tingling today. Eager to get discharged. On exam patient is well-built and nourished, no apparent distress, normocephalic atraumatic, EOMI, normal breath sounds, clear to auscultation, S1- S2, no murmur, no pedal edema, abdomen soft, nontender, normal bowel sounds, alert, awake, oriented, grossly no focal deficits. Lumbar disc herniation with radiculopathy S/P surgery. Pain control, activity as per primary team. Consider PT OT. Bowel regimen to prevent constipation. No signs of COPD exacerbation. Blood pressure better today. I personally reviewed the record. Patient is interviewed and examined at bedside. Patient's care is coordinated with Jazmyne Clark PA-C. Please refer to the documentation above for details of patient's presentation and for discussion of other issues. Subjective Seen and examined in 357-1. LLE pain completely resolved post-operatively. Some surgical site discomfort but significantly improved. Tolerating diet. No F/C, CP, SOB, N/V/D, urinating without issue. Passing flatus. Review of Systems Review of Systems: At least ten systems reviewed and negative except as noted in the HPI. Physical Exam Physical Exam: Gen: WD/WN, NAD, lying in bed, A&Ox3 HEENT: Normocephalic, atraumatic, conjunctivae moist, sclerae anicteric, mucous membranes moist Lung: Clear to Auscultation bilaterally, no wheezes/rales/rhonchi Heart: Regular rate, regular rhythm, no murmurs, rubs, or gallops Abdomen: Soft, NT, ND +BS x 4 Extremities: Spinal dressing c/d/i. No edema Skin: Warm, no rash Results & Data Results & Data ([facility]) Vital Signs (Past 12 Hours) Vital Signs Temp Pulse Pulse Resp BP Pulse Ox 06/19/21 07:58 36.9 C 78 16 123/69 98 06/19/21 03:38 37.1 C 89 16 128/76 96 06/19/21 00:32 37.0 C 76 16 121/69 95 06/18/21 23:39 94 H 16 133/87 96 06/18/21 22:33 36.8 C 90 16 128/87 99 06/18/21 22:04 36.9 C 79 17 123/79 98 06/18/21 21:30 36.7 C 81 16 125/84 98 06/18/21 21:15 85 20 127/78 98 Laboratory Results Short CBC 06/19/21 Range/Units 05:30 WBC 9.49 (4.8-10.8) K/uL Hgb 14.2 (14.0-18.0) g/dL Hct 39.3 L (42-52) % Plt Count 237 (130-400) K/uL BMP 06/19/21 05:30 Sodium 135 L Potassium 3.9 Chloride 100 Carbon Dioxide 28 BUN 14 Creatinine 0.89 Glucose 117 H Calcium 9.2 Diagnostic Findings Spine X-Ray 06/18/21 13:00 FL spine 1V any level CLINICAL HISTORY: Laminectomy COMPARISON STUDY: None FLUOROSCOPY TIME: 4 seconds. FLUOROSCOPIC IMAGES: 1 FINDINGS: Lateral fluoroscopic image was obtained with the probe present at the L5-S1 level. IMPRESSION: Localization of the L5-S1 level. ACT 112: Negative or not required by law. Electronically signed by: Marcellus Cruz M.D. 06/18/2021 10:13 PM
--- NOTE | 2021-06-19 12:54 | Discharge Summary ---
Date of Service June 19, 2021 Admission HPI Per Admitting Provider This is a 36-year-old male that has history of left sciatica for several weeks with a marked decline in status over the past few days. He presents emergency room with severe pain and inability to ambulate. He denies any loss of bowel bladder control. Denies any perineal numbness. Does have numbness and tingling extending down the entire left lower extremity to the lesser toes. The right lower extremities asymptomatic. Principal Diagnosis Lumbar disc condition with radiculopathy L5-S1 Discharge Data Allergies Allergy/AdvReac Type Severity Reaction Status Date / Time No Known Allergies Allergy Unverified 06/17/21 19:16 Consultations 06/17/21 18:25 ED Decision to Admit Stat 06/17/21 20:18 Consult Internal Medicine Routine Procedures Performed Operation Date: 06/18/21 10:30 Actual Procedures p L5-S1 Laminectomy (Left) - Avinash Andersen DO Ordered Studies 06/18/21 13:00 FL spine 1V any level Routine Hospital Course (1) Lumbar disc herniation with radiculopathy: Patient was admitted with severe radiculopathy and secondary to the progressive neuro deficit and significant pain unrelenting nature requiring IV narcotics we underwent emergent laminotomy excision of herniated free fragment. Patient tolerated this well following day was up and ambulating pain well controlled excellent strength testing separately discharged home. Discharge orders instructions from the chart for further view. Total Time Total Time Spent Total Time Spent (In Minutes): 20 Discharge Plan Discharge Items Patient Disposition: Home - Self-Care Reason For Visit: LUMBAR DISK HERNIATION Discharge Diagnosis: Lumbar disc condition with radiculopathy Condition on Discharge: Good Activity: As commented below Non-emergency contact: Primary Care Provider Call non-emergency contact if: you have any medication questions Follow-up/Referrals: Petey Saucedo MD [Primary Care Provider] - Diet: Regular Addtl Attending Provider Instructions: ACTIVITY RECOMMENDATIONS: SELF CARE INSTRUCTIONS AFTER A LAMINECTOMY 1. No prolonged sitting (less than 30 minutes for the first 3 weeks after surgery). 2. No bending, lifting more than 5 pounds, or twisting (roll like a log when turning in bed). 3. You may shower 3 days after surgery if no drainage from wound. Thoroughly dry wound. Do not soak in the tub. 4. Please walk as much as you can for exercise. Gradually increase the distance that you walk as your endurance increases. 5. You may drive in 7-10 days if you are comfortable and no longer requiring pain medications. SPECIAL CARE INSTRUCTIONS: VERY IMPORTANT TO READ AND REVIEW A. Your surgical incision has been closed with a cosmetic suture under the skin that will dissolve in about 6 weeks. In 14 days, you can use a pair of clean scissors and cut the suture that is left outside of the skin at the ends of your incision. B. Complications are uncommon, but please contact us if you have any signs or symptoms of: 1. wound infection (fever higher than 102.5 degrees F, redness, separation of wound, drainage, or increasing pain from the incision) 2. blood clots in legs (pain, swelling, redness and warmth in legs) 3. urinary tract infection (fever higher than 102.5 degrees, burning upon urination or increased frequency of urination) 4. nerve problems (inability to walk on your toes or heels, numbness, loss of bowel or bladder control) 5. any other symptoms that concern you. C. Please call the office at if you have any concerns or questions about your operation or recovery. MANAGING PAIN AFTER SPINAL SURGERY 1. Narcotic medication is intended for short-term use and will be provided for surgical pain. Surgical pain usually lasts for a period of 4-6 weeks. Narcotic medication includes Percocet, Vicodin, Darvocet, Tylenol #3 or Lortab. 2. Longer-term pain is more appropriately treated with non-narcotic medication such as Tylenol ES. 3. Muscle spasm is not appropriately treated with narcotics. Muscle relaxers such as Soma, Flexeril or Skelaxin can be used along with Tylenol ES. 4. Remember that we all live with some "aches and pains". This is not unusual or uncommon after an injury or as we get older. 5. We will provide appropriate medication within the normal guidelines of their prescribed use. We will also be very cautious and aware of potential abuse and extended duration of patients' medication needs. 6. Please allow 2-3 days to process refills. Prescriptions will not be mailed but must be picked up at the office. FOLLOW UP VISIT: Keep your scheduled follow-up appointment. Any questions, please call the office at . Pending Studies at Discharge: No Stand-Alone Forms: [facility], Smoking Cessation Medications and DC Order Prescriptions: New tramadol 50 mg tablet 50 mg PO Q6H PRN (Reason: pain, moderate) Qty: 20 RF: 0 oxycodone 5 mg tablet 5 mg PO Q6H PRN (Reason: pain, severe) Qty: 20 RF: 0 Continued cyclobenzaprine 10 mg tablet 10 mg PO BID PRN (Reason: Muscle Spasm) RF: 0 citalopram 40 mg tablet 40 mg PO QAM RF: 0 valacyclovir 1 gram tablet 1,000 mg PO DAILY RF: 0 meloxicam 7.5 mg tablet 7.5 mg PO BID RF: 0 buspirone 10 mg tablet 20 mg PO QAM RF: 0 methylprednisolone 4 mg tablets,dose pack 4 - 24 mg PO UD RF: 0 Discharge Orders: Discharge Order (Routine); Ordered 06/19/21 Ordered By: Avinash Skinner/Other Patient Handouts: DVT Post Op Prevention Admission Data Admit Date/Time: 06/17/21 19:12 Attending Provider: Avinash Andersen Admit Provider: Avinash Andersen Primary Care Provider: Petey Saucedo Other Providers: Jazmyne Clark ; Rolan Hay ; Avinash Andersen ; Teagan Holcomb. Other Interventions: Discharge Summary Assessment (RN) Last Done: 06/19/21 11:18
== END 2021-06-19 13:10 | disposition home or self-care (01) | DRG 520 ==
LOC: ED 16:47 → 3W 19:12